=== PATIENT | male | born 1940 | race Caucasian/White ===

== ENCOUNTER → 2016-11-02 | Day surgery (SDC) | payer OTHER | END | disposition home or self-care (01) | LOC: ESDC 07:29 | PROVIDERS: ATTEND Orthopaedic Surgery Sports Medicine | DX: M23.312 Other meniscus derangements, anterior horn of medial meniscus, left knee (principal) ==

== ENCOUNTER → 2016-11-10 | Day surgery (SDC) | payer OTHER ==
[~2016-11-10] MED LIST: BUPIVACAINE/EPINEPHRINE 0.25% 50 ML VIAL ONE; KETOROLAC TROMETHAMINE 30 MG/ML (IVP) VIAL IV PUSH ONE; LACTATED RINGER'S 1000 ML INJ 1,000 ML ONE; MIDAZOLAM HCL 2 MG/2 ML VIAL ONE; ONDANSETRON HCL 4 MG/2 ML VIAL IV PUSH ONE; PROPOFOL 200 MG/20 ML AMP IV ONE; ceFAZolin INJ 1,000 MG VIAL ONE
--- NOTE | 2016-11-10 11:57 | TN ---
cc: THAD MENDOZA M.D. DATE OF SURGERY 11/10/2016 PREOPERATIVE DIAGNOSIS 1. Left knee medial meniscus tear. 2. Left knee degenerative arthritis POSTOPERATIVE DIAGNOSIS 1. Left knee complex medial meniscus tear. 2. Left knee small lateral meniscus tear, radial midbody. 3. 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 4. Extensive synovitis involving suprapatellar pouch, intercondylar notch, and medial compartment. PROCEDURE PERFORMED 1. Left knee arthroscopy with partial medial and lateral meniscectomy. 2. Extensive synovectomy 3. Chondroplasty medial femoral condyle. SURGEON Thad Mendoza MD ANESTHESIA General via laryngeal mask augmented by local infiltration BLOOD LOSS Minimal FLUID REPLACEMENT 500 cc of crystalloid TOURNIQUET TIME 25 minutes at 300 mmHg COMPLICATIONS There were no intraoperative complications. COUNTS All counts were correct. INDICATIONS FOR PROCEDURE Mr. Vieyra is a 76-year-old gentleman who has had problems with persistent left knee pain and mechanical symptoms consistent with medial meniscus tear. He was being taken the operating room for arthroscopic debridement of the knee after he had had limited improvement with intra-articular steroid injection. He had been given the option of ongoing conservative management versus the possibility of arthroscopic debridement and he was eager to pursue debridement. He was aware of the risks, benefits, potential complications and limitations of the procedure and full written informed consent was obtained. DESCRIPTION OF THE PROCEDURE After the patient was appropriately identified in the holding area. He correctly identify his left knee and I had initialed it as well. He was then given 1 gram of intravenous Ancef as prophylactic antibiotic and is taken to the operating suite. There he was placed under general laryngeal mask anesthetic by Dr. Hawkins and then a well-padded tourniquet was applied high on the left thigh. He was then prepped with alcohol and Hibiclens and draped in the normal standard fashion including the use of impervious stockinette from the foot all the way up to the proximal tibia. He then had a time-out confirming the left leg was appropriate surgical site. The team was in agreement and case was now begun. At this time, the leg was elevated and exsanguinated with an Stevie wrap and the tourniquet was raised to 300 mmHg. Standard anteromedial and anterolateral joint line portals were established under direct vision. The scope was introduced. A small effusion was evacuated. It was slightly blood-tinged and the inflow was initiated and a survey of the joint was as follows. The suprapatellar pouch had no evidence of any significant synovitis or loose bodies. There was no obvious maltracking of the patella. Directly at the patellofemoral joint, there was more significant synovitis involving the patellar fat pad. It was quite hypertrophic and I went ahead and debrided a fair amount of it because it was clearly impinging within the patellofemoral joint space itself. Once this was debrided and there was no longer any significant mechanical impaction into the joint. At this time, the medial gutter was now explored. There was no evidence of any obvious loose bodies, but there was hypertrophic synovial tissue which was debrided with an oscillating shaver. This was excised in order to prevent impingement within the medial joint space. Examination of the medial compartment at this time revealed evidence of a complex tear seen of the posterior third of the medial meniscus. There was some corresponding grade 2B and 3A changes of the medial tibial plateau especially posteriorly. It was not throughout and is involved what I would consider 15% or less of the total joint surface area. The tibial plateau had less significant changes in the medial femoral condyle which was more of a diffuse grade 2B and a few areas of some grade 3A changes were present. Some loose tissue was identified and this was debrided with an oscillating shaver. At this time, the medial meniscus rim was probed. It was found to be stable and would not sublux into the joint. The intercondylar notch was now explored. The ACL was found to be intact and would not sublux into the joint. The lateral compartment was now entered. There was no evidence of any high-grade cartilage loss, but there was clearly some evidence of a radial tear seen on the midbody of the lateral meniscus which was debrided by hand and then further contoured by a shaver. The rest of the lateral meniscus was stable. There was no evidence of any significant chondromalacia of the lateral compartment. Minimal synovitis was also appreciated. I went ahead and I thoroughly suctioned decompressed the knee, irrigated it, filled for one more time, reinspected all compartments and did not find any further pathology. She was suctioned decompressed a final time. The instruments were then fully removed. The portals were closed with 3-0 nylon simple sutures and then covered with Xeroform and 4x4s. Her leg was then wrapped with an Stevie wrap. The tourniquet was let down. There was brisk return of capillary refill to the foot. She was awoken from anesthesia and taken to recovery in stable condition. Appropriate postoperative orders have been written. Thad Mendoza MD Electronically Signed Thad Mendoza MD SIS/DJL /11:04 AM /11:34 AM MTDD
== END | disposition home or self-care (01) ==
LOC: ESDC 08:36
PROVIDERS: ATTEND Orthopaedic Surgery Sports Medicine
DX: S83.232A Complex tear of medial meniscus, current injury, left knee, initial encounter (principal); S83.282A Other tear of lateral meniscus, current injury, left knee, initial encounter; M17.12 Unilateral primary osteoarthritis, left knee; M94.262 Chondromalacia, left knee; M65.9 Synovitis and tenosynovitis, unspecified
CPT/HCPCS: 01400; 29880; J0690; J1885; J2250; J2405; J3010; J7120